=== PATIENT | male | born 1980 | race Two or more races ===

== ENCOUNTER 2016-11-25 13:08 | Emergency (ER) | payer SELFPAY ==
--- NOTE | ~2016-11-25 | ER ---
PATIENT'S NAME: [facility] AGE: 36 Y [address] ROOM: [place] [id number] LOCATION: [facility] ADMIT DATE: 11/25/2016 ER/Outpatient Report DISCHARGE DATE: 11/25/2016 FAMILY PHYSICIAN: PHYSICIAN, NO ATTENDING PHYSICIAN: Maxime Catalan Time of Arrival: 1325 hours. Time of Evaluation: 1325 hours. CHIEF COMPLAINT: Right knee pain. HISTORY OF PRESENT ILLNESS: The patient's states that he has been having right knee pain for the last week. It seems worse today. It is more painful, painful to walk with. He has swelling. He denies any injury to his knee. 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 He denies any numbness or tingling to his toes. ALLERGIES: HE HAS NO KNOWN ALLERGIES. MEDICATIONS: No current medications. PAST MEDICAL HISTORY: Benign. PAST SURGICAL HISTORY: Negative. SOCIAL HISTORY: Denies use of tobacco, drugs, or alcohol. REVIEW OF SYSTEMS: All negative other than those mentioned in the HPI. PHYSICAL EXAMINATION: VITAL SIGNS: He weighs 93.2 kg, blood pressure is 139/75, pulse of 104, respirations 20, temperature of 99.2 tympanic, O2 saturation is 94% on room air. GENERAL: He is awake, alert, and oriented x4. SKIN: [place], warm, and dry. RESPIRATIONS: Even and nonlabored. Lung sounds are clear throughout. HEART: Regular rate and rhythm. PATIENT'S NAME: [facility] AGE: 36 Y [address] ROOM: [place] [id number] LOCATION: [facility] ADMIT DATE: 11/25/2016 ER/Outpatient Report DISCHARGE DATE: 11/25/2016 FAMILY PHYSICIAN: PHYSICIAN, NO ATTENDING PHYSICIAN: Maxime Catalan EXTREMITIES: Right knee is swollen. Fluid is noted. He has strong pedal pulses. Good sensation to his toes. His knee is tender on the lateral and medial aspects of it. It is reddened around the patella area. No open areas are noted. It is warm to touch. LABORATORY DATA AND X-RAYS: CBC was drawn. White count was 12, ANC was 9.1. Sedimentation rate was 14. Chem panel was within normal limits. His CRP was 2.13. Lactate was 1.9. Procalcitonin was normal. X-ray of the knee was completed. No bony abnormality is seen. EMERGENCY ROOM COURSE: Saline lock was initiated. The patient was reviewed with Dr. Catalan. The patient was given vancomycin 1000 mg, IV piggyback here in the ER. IMPRESSION: Bursitis with infection. PLAN: Home, rest, elevate. Torito wrap was applied for support. Prescription was written for dicloxacillin. He is to follow up with Orthopedic in the next 1 to 2 days. He was given the name of [facility] as they are on-call for trauma. He and his verbalized understanding. ARIANA ZALDIVAR APRN FOR MD ZAKIYA PRICE/dontrell /[id number] d: t: 11/25/16 2100, OUTPATIENT REPORT
[2016-11-25 13:53] LABS: BASOPHIL # 0.1 K/uL (0.0-0.2); BASOPHIL % 0.6 %; EOSINOPHIL # 0.4 K/uL (0.0-0.5); EOSINOPHIL % 3.4 %; HEMATOCRIT 43.5 % (37.0-53.0); HEMOGLOBIN 14.5 g/dL (12.0-17.0); IMMATURE GRANULOCYTE % 0.3 %; LYMPHOCYTE # 1.7 K/uL (0.8-4.0); LYMPHOCYTE % 14.3 %; MCH 30.6 pg (27.0-34.0); MCHC 33.3 gm/dL (32.0-36.5); MCV 91.8 fl (83.0-98.0); MONOCYTE # 0.7 K/uL (0.0-1.0); MONOCYTE % 5.7 %; MPV 9.5 fl (9.4-12.4); NEUTROPHIL # (ANC) 9.1 K/uL (1.4-9.0); NEUTROPHIL % 75.7 %; NRBC % 0 /100WBC (0-0.00); PLATELET COUNT 264 K/uL (150-450); RBC 4.74 M/uL (4.00-6.00); RDW-CV 12.1 % (11.9-14.6)
[2016-11-25 14:12] LABS: ALBUMIN 3.5 gm/dL (3.5-5.0); ALK PHOS 76 IU/L (33-138); ALT 31 IU/L (12-78); BLOOD UREA NITROGEN 13 mg/dL (6-24); CALCIUM 8.5 mg/dL (8.5-10.5); CHLORIDE 108 mMol/L (96-110); CO2 25 mMol/L (22-32); CREATININE 0.8 mg/dL (0.6-1.3); SODIUM 140 mMol/L (135-145); TOTAL BILIRUBIN 0.3 mg/dL (0.0-1.5); TOTAL PROTEIN 7.5 g/dL (6.0-8.4)
[2016-11-25 14:14] LABS: ANION GAP 11.1 (10.0-19.0); AST 18 IU/L (10-40); POTASSIUM 4.1 mMol/L (3.7-5.1)
== END 2016-11-25 15:50 | disposition disaster alternative care site (69) ==
LOC: GMED 13:08
PROVIDERS: Nurse Practitioner Family
DX: M71.161 Other infective bursitis, right knee (principal)
CPT/HCPCS: J3370; J7050